=== PATIENT | female | born 1985 | race Caucasian/White ===

== ENCOUNTER 2019-09-24 01:05 | Inpatient (IN) ==
[~2019-09-24 01:05] MED LIST: *HR* Nalbuphine 10 MG/ML AMPUL IVP PRN; Famotidine 20 MG/2 ML VIAL IVP PRN; Lidocaine 1% 20 ML MDV ID PRN; Metoclopramide 10 MG/2 ML VIAL IVP PRN; Naloxone 0.4 MG/ML INJ IVP PRN; miSOPROStoL 25 MCG TABLET PO ONE
[2019-09-24 01:07] LABS: Basophils % 0.2 %; Eosinophils # 0.2 K/mcL (0.0-0.6); Hematocrit 33.5 % (35.3-44.9); Hemoglobin 11.8 g/dL (11.5-15.4); Immature Granulocytes % 0.7 % (0-4); Lymphocytes # 3.7 K/mcL (0.6-4.6); Lymphocytes % 22.6 %; Mean Corpuscular HGB Conc 35.2 g/dL (31.6-35.5); Mean Corpuscular Hemoglobin 34.1 pg (28.0-33.3); Mean Corpuscular Volume 96.8 fL (83.0-100.0); Mean Platelet Volume 10.5 fL (9.4-12.4); Monocytes # 0.9 K/mcL (0.0-1.3); Monocytes % 5.4 %; Neutrophils # 11.6 K/mcL (1.6-8.9); Platelet Count 244 K/mcL (140-400); Red Blood Count 3.46 M/mcL (3.82-4.97); Red Cell Distribution Width 12.3 % (11.5-14.5); Segmented Neutrophils % 70.1 %; White Blood Count 16.5 K/mcL (4.3-11.1)
[2019-09-24 01:20] LABS: Amphetamine Screen,Urine Negative ng/mL (Cutoff=1000); Barbiturate Screen,Urine Negative ng/mL (Cutoff=200); Benzodiazepines Screen,Urine Negative ng/mL (Cutoff=200); Cannabinoid Screen,Urine Negative ng/mL (Cutoff = 50); Cocaine Screen,Urine Negative ng/mL (Cutoff= 300); Opiate Screen,Urine Negative ng/mL (Cutoff=300); Phencyclidine Screen,Urine Negative ng/mL (Cutoff=25)
[2019-09-24] MEDS: Oxytocin 20 units/ LR 1000 mL 20 UNIT/1,000 ML BAG IVC SCH ×2 (05:48→16:43)
[2019-09-24] MEDS: Ringers Solution, Lactated 1,000 ML IVC SCH ×2 (05:48→13:59)
[2019-09-24] MEDS ORDERED: Bupivacaine-MPF 0.25% 10 ML VIAL ONE (21:10)
[2019-09-24] MEDS ORDERED: Epidural Premix (fent/bupiv) 110 ML EP ONE (21:24)
[2019-09-24] MEDS ORDERED: Bupivacaine-MPF 0.25% 10 ML VIAL EP ONE (21:56)
[2019-09-24] MEDS ORDERED: Epidural Premix (fent/bupiv) 110 ML EP SCH (22:00)
[2019-09-24] MEDS ORDERED: *HR* FentaNYL (PF) 100 MCG/2 ML VIAL ONE (22:07)
[2019-09-25] MEDS: Ringers Solution, Lactated 1,000 ML IVC SCH (03:48)
[2019-09-25] MEDS ORDERED: CeFAZolin Premix DUPLEX 2,000 MG/50 ML BAG IVPB ONE (04:38)
[2019-09-25] MEDS ORDERED: Metoclopramide 10 MG/2 ML VIAL IVP ONE (04:38)
[2019-09-25] MEDS ORDERED: Famotidine 20 MG/2 ML VIAL IVP ONE (04:38)
[2019-09-25] MEDS ORDERED: Ringers Solution, Lactated 1,000 ML IVC SCH (04:45)
[2019-09-25] MEDS ORDERED: Azithromycin 500 MG in 0.9 % Sodium Chloride 250 ML IVPB ONE (04:57)
[2019-09-25] MEDS ORDERED: Lidocaine/EPI 1:200k 2% PF 20 ML VIAL ONE (05:14)
[2019-09-25] MEDS ORDERED: *HR* Oxytocin 10 UNIT/ML VIAL IM ONE (05:49)
[2019-09-25] MEDS ORDERED: Ringers Solution, Lactated 1,000 ML ONE (05:49)
[2019-09-25] MEDS ORDERED: Ondansetron 4 MG/2 ML VIAL ONE (05:49)
[2019-09-25] MEDS ORDERED: Dexamethasone 4 MG/ML VIAL ONE (05:49)
[2019-09-25] MEDS ORDERED: Ketorolac 30 MG/ML VIAL ONE (05:49)
[2019-09-25] MEDS ORDERED: *HR* Morphine Sulfate/PF 10 MG/10 ML AMPUL ONE (05:53)
[2019-09-25] MEDS ORDERED: Ibuprofen 400 MG TABLET PO PRN (06:26)
[2019-09-25] MEDS ORDERED: Ondansetron 4 MG/2 ML VIAL IVP PRN ×2 (06:26→09:59)
[2019-09-25] MEDS ORDERED: *HR* OxyCODONE/APAP 5/325 TABLET PO PRN (06:26)
[2019-09-25] MEDS ORDERED: Acetaminophen IV 1,000 MG/100 ML INFUS..BTL IVPB ONE (06:27)
[2019-09-25] MEDS ORDERED: *HR* Meperidine 50 MG/ML SYRINGE IVP PRN (06:28)
[2019-09-25] MEDS ORDERED: Sennosides 8.6 MG TABLET PO PRN (09:59)
[2019-09-25] MEDS ORDERED: Metoclopramide 10 MG/2 ML VIAL IVP PRN (09:59)
[2019-09-25] MEDS ORDERED: Oxytocin 20 units/ LR 1000 mL 20 UNIT/1,000 ML BAG IVC SCH ×2 (09:59)
[2019-09-25] MEDS ORDERED: Rho Immune Globulin 1,500 UNIT SYRINGE IM ONE (09:59)
[2019-09-25] MEDS ORDERED: Acetaminophen 325 MG TABLET PO PRN (09:59)
[2019-09-25] MEDS: Prenatal Vit/FA 1 EACH TABLET PO SCH (10:10)
[2019-09-25] MEDS: *HR* OxyCODONE Immed Rel 5 MG TABLET PO PRN (11:31)
[2019-09-25] MEDS ORDERED: Methylergonovine 0.2 MG/ML AMPUL IM ONE (13:13)
[2019-09-25] MEDS: Ibuprofen 600 MG TABLET PO PRN ×2 (17:18→23:06)
[2019-09-25] MEDS: Simethicone 80 MG TAB.CHEW PO PRN (20:33)
[2019-09-26 09:40] LABS: Basophils # 0.1 K/mcL (0.0-0.2); Basophils % 0.3 %; Eosinophils # 0.1 K/mcL (0.0-0.6); Eosinophils % 0.6 %; Hemoglobin 10.3 g/dL (11.5-15.4); Lymphocytes # 4.3 K/mcL (0.6-4.6); Lymphocytes % 18.7 %; Mean Corpuscular HGB Conc 35.5 g/dL (31.6-35.5); Mean Corpuscular Hemoglobin 34.4 pg (28.0-33.3); Mean Platelet Volume 10.4 fL (9.4-12.4); Monocytes # 0.9 K/mcL (0.0-1.3); Monocytes % 4.1 %; Neutrophils # 17.2 K/mcL (1.6-8.9); Platelet Count 244 K/mcL (140-400); Red Blood Count 2.99 M/mcL (3.82-4.97); Red Cell Distribution Width 12.6 % (11.5-14.5); Segmented Neutrophils % 75.3 %; White Blood Count 22.9 K/mcL (4.3-11.1)
[2019-09-26] MEDS: *HR* OxyCODONE Immed Rel 5 MG TABLET PO PRN ×3 (09:45→20:39)
[2019-09-26] MEDS: Prenatal Vit/FA 1 EACH TABLET PO SCH (09:45)
[2019-09-26] MEDS: Ibuprofen 600 MG TABLET PO PRN ×2 (13:14→20:39)
[2019-09-26] MEDS: Simethicone 80 MG TAB.CHEW PO PRN (20:40)
[2019-09-27] MEDS: Prenatal Vit/FA 1 EACH TABLET PO SCH (08:54)
[2019-09-27] MEDS: Ibuprofen 600 MG TABLET PO PRN (08:55)
[2019-09-27] MEDS: *HR* OxyCODONE Immed Rel 5 MG TABLET PO PRN (09:03)
[2019-09-27 21:49] VITALS: BP 111/55
== END 2019-09-27 11:58 | disposition home or self-care (01) | DRG 540 ==
LOC: 1NENULAB → 1NENUOBS 09-25 08:59
PROVIDERS: ADMIT Advanced Practice Midwife; ATTEND Advanced Practice Midwife